=== PATIENT | female | born 1950 | race Hispanic/Latino ===

== ENCOUNTER 2018-04-15 14:21 | Inpatient (IN) | payer MEDICARE ==
[~2018-04-15] VITALS: Ht 162.6 cm; Wt 139.7 kg
[2018-04-15 14:50] LABS: BILIRUBIN,URINE Negative (NEGATIVE); COLOR,URINE Dark Yellow (YELLOW); GLUCOSE, URINE (UA) Negative (NEGATIVE); KETONES,URINE Trace mg/dL (NEGATIVE); LEUKOCYTE ESTERASE ,URINE Moderate (NEGATIVE); NITRATE,URINE Positive (NEGATIVE); OCCULT BLOOD,URINE Large (NEGATIVE); PROTEIN,URINE POS 1+ (NEGATIVE)
[2018-04-15 14:57] LABS: APPEARANCE,URINE SLIGHTLY CLOUDY (CLEAR)
[2018-04-15 14:59] LABS: AMORPHOUS SEDIMENT,UR Few /LPF (None Seen); BACTERIA,URINE Few /HPF (None Seen); RBC,URINE 51-100 /HPF (0-1); SQUAMOUS EPITHELIAL CELL,UR Few /HPF (0-2)
[2018-04-15 15:00] LABS: MUCUS,URINE Few LPF (None Seen)
[2018-04-15 15:02] LABS: BASOPHILS % (AUTO) 1.6 % (0.0-5.0); EOSINOPHILS % (AUTO) 0.3 % (0.0-8.0); HEMATOCRIT 40.7 % (36-48); LYMPHOCYTES % (AUTO) 21.6 % (21.0-51.0); MEAN CORPUSCULAR HEMOGLOBIN 28.2 pg (27.0-33.0); MEAN CORPUSCULAR HGB CONC 34.2 g/dL (32.0-36.0); MEAN CORPUSCULAR VOLUME 82.5 fL (79-99); MONOCYTES % (AUTO) 6.7 % (3.0-13.0); NEUTROPHILS % (AUTO) 69.8 % (40.0-77.0); NUCLEATED RED BLOOD CELLS 0.1 % (0.0-0.19); PLATELET COUNT (AUTO) 193 K/uL (130-400); RED BLOOD CELL COUNT(AUTO) 4.93 MIL/uL (4.00-5.50); RED CELL DISTRIBUTION WIDTH 14.9 % (11.0-15.5); WHITE BLOOD COUNT (AUTO) 8.5 K/uL (4.8-10.8)
[2018-04-15] MEDS ORDERED: KETOROLAC TROMETHAMINE 15MG/ML ONE (15:07)
[2018-04-15] MEDS ORDERED: SODIUM CHLORIDE 0.9% 1000ML 1,000 ML IV ONE ×2 (15:07→20:48)
[2018-04-15 15:21] LABS: CREATININE 0.8 mg/dL (0.5-1.5); POTASSIUM 4.2 mmol/L (3.5-5.1)
[2018-04-15 15:34] LABS: ALBUMIN 4.1 g/dL (3.5-5.0); BILIRUBIN,TOTAL 0.8 mg/dL (0.2-1.0); CREATINE KINASE MB 2.4 ng/mL (0.5-3.6); TOTAL PROTEIN, SERUM 7.3 g/dL (6.0-8.3)
[2018-04-15] MEDS ORDERED: CEFTRIAXONE SODIUM 1 GM ONE (16:07)
[2018-04-15 22:00] VITALS: BP 125/68
[2018-04-15 23:00] VITALS: BP 122/72
[2018-04-15] MEDS ORDERED: METF500T6 PO (23:09)
[2018-04-15] MEDS ORDERED: LEVO150T11 PO (23:09)
[2018-04-15] MEDS ORDERED: LOSA50TA37 PO (23:09)
[2018-04-16 04:30] VITALS: BP 150/76
[2018-04-16] MEDS: ACETAMINOPHEN-CODEINE 300/30MG TAB PO PRN ×2 (05:58→17:07)
[2018-04-16] MEDS ORDERED: ONDANSETRON HCL 4 MG/2 ML VIAL IV PRN (06:15)
[2018-04-16] MEDS ORDERED: HYDRALAZINE HCL 20 MG/ML VIAL IV PRN (06:15)
[2018-04-16] MEDS ORDERED: MAG HYDROX/AL HYDROX/SIMETH ES 30 ML SUSP UDCUP PO PRN (06:15)
[2018-04-16] MEDS ORDERED: GUAIFENESIN-DM 200/20 MG 10 ML PO PRN (06:15)
[2018-04-16] MEDS ORDERED: ACETAMINOPHEN 325 MG TAB PO PRN ×2 (06:15)
[2018-04-16] MEDS ORDERED: ACETAMINOPHEN-CODEINE 300/30MG TAB PO PRN (06:15)
[2018-04-16] MEDS ORDERED: MORPHINE SULFATE 2 MG/ML 1ML SYG IV PRN (06:15)
[2018-04-16] MEDS ORDERED: LACTULOSE 20 GM/30 ML UDCUP PO PRN (06:15)
[2018-04-16] MEDS ORDERED: NITROGLYCERIN 0.4 MG SL TAB SL PRN (06:15)
[2018-04-16] MEDS ORDERED: MORPHINE SULFATE 4 MG/1ML SYG IVP PRN (06:30)
[2018-04-16] MEDS ORDERED: ATOR20TA65 PO (07:47)
[2018-04-16 08:00] VITALS: BP 146/73
[2018-04-16] MEDS: CEFTRIAXONE SODIUM 1 GM IVP SCH (09:43)
[2018-04-16] MEDS ORDERED: POTASSIUM CHLORIDE 10% ELIXIR 20 MEQ/15 ML UDCUP PO PRN (11:30)
[2018-04-16] MEDS: INSULIN HUMULIN R 100 UNIT/ML 3ML SQ SCH ×3 (11:30→20:38)
[2018-04-16] MEDS ORDERED: POTASSIUM CHLORIDE 20MEQ/100ML 100 ML IV PRN (11:30)
[2018-04-16] MEDS ORDERED: LIDOCAINE HCL-MPF 1% 2ML VIAL IVP PRN (11:30)
[2018-04-16] MEDS ORDERED: POTASSIUM CHLORIDE 20 MEQ ERTAB PO PRN (11:30)
[2018-04-16] MEDS ORDERED: DIATR MEGLU/DIATRIZOATE SODIUM 30 ML BOTTLE ONE (11:33)
[2018-04-16 12:00] VITALS: BP 129/71
[2018-04-16] MEDS ORDERED: IOPAMIDOL-370 75 ML VIAL IV ONE (13:57)
[2018-04-16 16:00] VITALS: BP 120/57
[2018-04-16] MEDS: ATORVASTATIN CALCIUM 20 MG TABLET PO SCH (17:00)
[2018-04-16 19:53] VITALS: BP 116/75
[2018-04-16 23:21] VITALS: BP 135/75
[2018-04-17 04:01] VITALS: BP 120/72
[2018-04-17 04:19] LABS: HEMATOCRIT 38.4 % (36-48); MEAN CORPUSCULAR HEMOGLOBIN 28.4 pg (27.0-33.0); MEAN CORPUSCULAR HGB CONC 34.5 g/dL (32.0-36.0); MEAN CORPUSCULAR VOLUME 82.1 fL (79-99); PLATELET COUNT (AUTO) 190 K/uL (130-400); RED BLOOD CELL COUNT(AUTO) 4.68 MIL/uL (4.00-5.50); RED CELL DISTRIBUTION WIDTH 14.9 % (11.0-15.5); WHITE BLOOD COUNT (AUTO) 7.8 K/uL (4.8-10.8)
[2018-04-17 04:32] LABS: CREATININE 0.8 mg/dL (0.5-1.5); POTASSIUM 4.8 mmol/L (3.5-5.1)
[2018-04-17] MEDS: INSULIN HUMULIN R 100 UNIT/ML 3ML SQ SCH ×4 (05:50→20:52)
[2018-04-17 07:30] VITALS: BP 148/65
[2018-04-17] MEDS ORDERED: LOSARTAN 50 MG TABLET PO SCH ×2 (09:00→21:00)
[2018-04-17] MEDS ORDERED: LEVOTHYROXINE 150 MCG TABLET PO SCH (09:00)
[2018-04-17] MEDS: CEFTRIAXONE SODIUM 1 GM IVP SCH (09:20)
[2018-04-17 11:00] VITALS: BP 117/64
[2018-04-17 16:00] VITALS: BP 125/61
[2018-04-17] MEDS: ATORVASTATIN CALCIUM 20 MG TABLET PO SCH (17:17)
[2018-04-17 19:00] VITALS: BP 132/61
[2018-04-18] VITALS: BP 130/66
[2018-04-18 04:00] VITALS: BP 139/76
[2018-04-18] MEDS ORDERED: LEVOTHYROXINE 150 MCG TABLET PO SCH (06:00)
[2018-04-18] MEDS: INSULIN HUMULIN R 100 UNIT/ML 3ML SQ SCH (06:18)
[2018-04-18 08:07] VITALS: BP 123/71
[2018-04-18] MEDS: CEFTRIAXONE SODIUM 1 GM IVP SCH (10:50)
== END 2018-04-18 12:21 | disposition home or self-care (01) | DRG 687 ==
LOC: EDH 14:21 → OBSVTOIN 17:58 → EDHIP 17:58 → 3AH 21:51
PROVIDERS: ADMIT Internal Medicine; ATTEND Internal Medicine
DX: D49.512 Neoplasm of unspecified behavior of left kidney (principal); L03.116 Cellulitis of left lower limb; E66.01 Morbid (severe) obesity due to excess calories; N39.0 Urinary tract infection, site not specified; Z68.43 Body mass index [BMI] 50.0-59.9, adult; E03.9 Hypothyroidism, unspecified; E11.9 Type 2 diabetes mellitus without complications; E78.5 Hyperlipidemia, unspecified; I10 Essential (primary) hypertension; Z87.442 Personal history of urinary calculi
CPT/HCPCS: 36415; 74176; 74177; 80048; 80053; 81001; 82550; 82553; 82948; 83690; 84484; 85025; 85027; 87088; 87186; 93005; A4218; J0696; J1815; J1885; J7030; Q9963; Q9967

== ENCOUNTER → 2018-12-04 | Outpatient (CLI) | payer MEDICARE ==
[~2018-12-04] MED LIST: ATOR20TA65 PO; LEVO150T11 PO; LOSA50TA64 PO; METF-444 PO
== END | disposition home or self-care (01) ==
LOC: SHCH 14:51
PROVIDERS: ATTEND Internal Medicine Cardiovascular Disease
DX: I51.7 Cardiomegaly (principal); R60.9 Edema, unspecified
CPT/HCPCS: 93306

== ENCOUNTER → 2018-12-07 | Outpatient (CLI) | payer MEDICARE | END | disposition home or self-care (01) | LOC: SHCH 11:30 | PROVIDERS: ATTEND Internal Medicine Cardiovascular Disease | DX: I87.2 Venous insufficiency (chronic) (peripheral) (principal) | CPT/HCPCS: 93970 ==

== ENCOUNTER → 2020-05-18 | Outpatient (CLI) | payer MEDICARE | END | disposition home or self-care (01) | LOC: OIH 11:09 | PROVIDERS: ATTEND Internal Medicine Cardiovascular Disease | DX: J90 Pleural effusion, not elsewhere classified (principal); I70.0 Atherosclerosis of aorta | CPT/HCPCS: 71046 ==

== ENCOUNTER → 2021-03-01 | Outpatient (CLI) | payer MEDICARE | END | disposition home or self-care (01) | LOC: SHCH 15:08 | PROVIDERS: ATTEND Internal Medicine Cardiovascular Disease | DX: I31.3 Pericardial effusion (noninflammatory) (principal); I51.7 Cardiomegaly; I10 Essential (primary) hypertension; E78.5 Hyperlipidemia, unspecified; E11.9 Type 2 diabetes mellitus without complications; R06.02 Shortness of breath; R05 Cough | CPT/HCPCS: 93306 ==

== ENCOUNTER 2021-05-22 08:47 | Day surgery (SDC) | payer MEDICARE ==
[2021-05-22] VITALS (7 sets, daily range): BP systolic 117–126; BP diastolic 62–78
[~2021-05-22] VITALS: Ht 162.6 cm; Wt 105.2 kg
[~2021-05-22 08:47] MED LIST changes: +AEC81 PO; +FURO20TA4 PO; +LORA10TA7 PO; +NACL 0.9% 1000ML 1,000 ML IV ONE; +PAZO200T PO; +PREDNISOLONE PO; +VITAD50000 PO
[2021-05-22] MEDS ORDERED: ALBU90AE2 IH (09:45)
[2021-05-22] MEDS ORDERED: ACET-2743 PO (09:45)
[2021-05-22] MEDS ORDERED: ESMOLOL HCL 10 MG/ML 10 ML VIAL ONE (11:51)
[2021-05-22] MEDS ORDERED: KETAMINE 50MG/ML SYRINGE 50 MG/ML DISP.SYRIN IV ONE (11:52)
[2021-05-22] MEDS ORDERED: MIDAZOLAM HCL 1 MG/ML 2ML VIAL ONE (11:54)
[2021-05-22] MEDS ORDERED: PROPOFOL 10 MG/ML 20ML VIAL IV ONE (11:54)
== END 2021-05-22 13:10 | disposition home or self-care (01) ==
LOC: ENDO 08:47 → DAH 08:47 → ENDO 13:10
PROVIDERS: ATTEND Internal Medicine
DX: K62.5 Hemorrhage of anus and rectum (principal); Z20.822 Contact with and (suspected) exposure to COVID-19; K64.4 Residual hemorrhoidal skin tags; K64.5 Perianal venous thrombosis; K62.6 Ulcer of anus and rectum; K64.8 Other hemorrhoids; I10 Essential (primary) hypertension; E11.9 Type 2 diabetes mellitus without complications; E78.5 Hyperlipidemia, unspecified; E66.9 Obesity, unspecified; E03.9 Hypothyroidism, unspecified; M19.90 Unspecified osteoarthritis, unspecified site; I25.10 Atherosclerotic heart disease of native coronary artery without angina pectoris; I49.1 Atrial premature depolarization; D64.9 Anemia, unspecified; I47.1 Supraventricular tachycardia; M81.0 Age-related osteoporosis without current pathological fracture; Z86.010 Personal history of colon polyps; Z79.82 Long term (current) use of aspirin; Z79.899 Other long term (current) drug therapy; Z98.890 Other specified postprocedural states; Z87.442 Personal history of urinary calculi; Z90.710 Acquired absence of both cervix and uterus; Z90.49 Acquired absence of other specified parts of digestive tract; Z79.84 Long term (current) use of oral hypoglycemic drugs; Z79.890 Hormone replacement therapy; Z79.01 Long term (current) use of anticoagulants; Z80.1 Family history of malignant neoplasm of trachea, bronchus and lung; Z80.51 Family history of malignant neoplasm of kidney; Z80.8 Family history of malignant neoplasm of other organs or systems
CPT/HCPCS: 45330; 82948; 87635; 93005; A4215; A4221; A4222; A4223; A4606; A4620; A4663; C9803; J2250; J3490 ×2; J7030; J2704